=== PATIENT | female | born 1990 ===

== ENCOUNTER 2016-09-20 17:29 | Emergency (ER) | payer SELFPAY ==
[2016-09-20 18:41] VITALS: BMI 37.3
--- NOTE | 2016-09-20 21:48 | US ---
EXAM: US Uterus, Limited. CLINICAL HISTORY: 25 years old, female; Pain; Other: Abd pain; Gestational age or lmp: 40 wks; ; Additional info: Jacinda; Variable decel; 40 wks; TECHNIQUE: Real-time ultrasound of the maternal uterus (limited) with image documentation. EXAM DATE/TIME: 09/20/2016 6:42 PM COMPARISON: There are no prior studies for comparison. FINDINGS: Gestation: There is a single intrauterine gestation in cephalic presentation. There is a heart rate of 144 beats per minute. Placenta is anterior and fundal. Amniotic fluid index measures 18.43 cm. Cervix: Cervix measures approximately 5 cm in length. IMPRESSION: Single cephalic fetus; normal amniotic fluid index
--- NOTE | 2016-09-20 23:36 | OBHP ---
Datetime: 09/20/2016 18:48 IP Adm Impression: Term, intrauterine ; No Active Labor; Intact Membranes IP Chief Complaint Other: Vaginal spotting IP Admit Plan: Observation/Evaluation Admit Comment, IP Provider: This is 25 y/o at 40 weeks GA, LIAM: 09/20/16 based on LMP( 6), with no significant past medical history who presents complaining of three episodes of vaginal sp otting since today morning around 8 am. Denies leakage of fluids. Patient reports she has llower back pain since few days ago, intensity 3/10. Reports good movements. Denies urinary symptoms or ot her complains. PMHx: No reported OBHx: , no complications during current . Allergies: NKDA Shx: no reported SocialHx:Denies smoking, etoh, no recreational drugs Medications: vitamins O: VE: 1-1.5 cm/70 %/-2 labs: GBS: negative, Chl/GC: neg, neg, RPR: neg, HIV: neg, rubella: immune A: 25 y/o with IUP at 40 weeks, in no active labor. Plan: -F/U obstetric US to emphasize -Consider DC home if KHADIJAH is normal Case discussed with Dr. Corey Chávez PGY1 OBH ADDENDUM: Pt seen _ examined by me. Agree with assessment and pln. Note pt denies coitus x3+mo's p: d/c home labor precautions kick counts f/u with ob appt as sched'd Pelvic Type - PN: Adequate Extremities - PN: Normal Abdomen - PN: Abnormal Lungs - PN: Normal Heart - PN: Normal Thyroid - PN: Normal Neurologic - PN: Normal HEENT - PN: Normal General - PN: Normal Presentation-Admit: Vertex FHR - Baseline A Provider: 140 Comments, ACOG Physical Exam: US results: KHADIJAH=15 IP Hx Assessment: The History has been Reviewed and is Current IP Chief Complaint: Maternal discomfort NICHD Variability Prov Fetus A: Moderate 6-25bpm NICHD Accel Fetus A IP Provider: 15X15 FHR Category Provider Fetus A: Category I NICHD Decel Fetus A IP Provider: None Genitourinary Exam: Normal
== END 2016-09-20 21:20 | disposition home or self-care (01) ==
LOC: H.EROB2 17:29
DX: O47.1 False labor at or after 37 completed weeks of gestation (principal); O48.0 Post-term pregnancy; Z3A.40 40 weeks gestation of pregnancy

== ENCOUNTER 2016-09-21 15:15 | Inpatient (IN) | payer MEDICAID, SELFPAY ==
[2016-09-21] MEDS ORDERED: Lactated Ringer's 1,000 ML IV ONE (18:15)
[2016-09-21 18:16] VITALS: BMI 33.6
--- NOTE | 2016-09-21 18:16 | OBHP ---
Datetime: 09/21/2016 15:47 IP Adm Impression: Term, intrauterine IP Admit Plan: Observation/Evaluation Admit Comment, IP Provider: 25 yo at 40+1 wks w/ c/o of a lot of pain in suprapubic region and lower back pain, sx started at 10pm last night. Pt rates the pain /. Pt reports that she feel s like she is having ctxns, denies LOF reorts a little blood spotting. Pt was examined yesterday in [facility]. Pt speaks Hungarian. Madhavi Allison RN translated. 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, denies STDs, abn paps PE: AFVSS Gen'l: pt appears in NAD, lying in bed Abd: soft, NT, gravid Ext: NT EFM: as above A/P: 25 yo at 40+1 wks w/ painful ctxns Extremities - PN: Normal Abdomen - PN: Normal Neurologic - PN: Normal General - PN: Normal FHR - Baseline A Provider: 140 Membranes, Provider: Intact EGA AdmitDate IP: 40.1 Vital Signs Provider: Reviewed IP Chief Complaint: Uterine contractions NICHD Variability Prov Fetus A: Moderate 6-25bpm NICHD Accel Fetus A IP Provider: 15X15 FHR Category Provider Fetus A: Category I NICHD Decel Fetus A IP Provider: None Dilatation, Provider: 2 Effacement, Provider: 80 Station, Provider: -2 Genitourinary Exam: Normal
--- NOTE | 2016-09-21 18:23 | OBPN ---
Datetime: 09/21/2016 18:17 IP Progress Plan Other: Morphine rest IP Progress Impression Other: Painful contractions IP Procedures: Sterile Vag Exam Membranes, Provider: Intact Contraction Comments Provider: Irregular FHR - Baseline A Provider: 130 IP Progress Note Comment: 25 yo at 40+1 wks w/ painful ctxns VE unchanged, may be early or prodromal labor Will give IVF, 4mg IV morphine and 10 mg IM morphine for now NICHD Accel Fetus A IP Provider: 15X15 FHR Category Provider Fetus A: Category I NICHD Variability Prov Fetus A: Moderate 6-25bpm Dilatation, Provider: 2 Effacement, Provider: 80 Station, Provider: -2 NICHD Decel Fetus A IP Provider: None Datetime: 09/21/2016 15:47 Vital Signs Provider: Reviewed Datetime: 09/20/2016 18:48 Presentation-Admit: Vertex
[2016-09-22 04:39] LABS: BASO # 0.1 K/uL (0.0-0.2); BASO % 0.8 % (0.0-2.0); EOS % 0.2 % (0.0-4.0); HEMATOCRIT 38.4 % (34.0-47.0); LYMPH # 1.8 K/uL (1.0-4.3); LYMPH % 19.4 % (20.0-40.0); MEAN CELL VOLUME 93.3 fl (81.0-99.0); MEAN CORPUSCULAR HEMOGLOBIN 30.5 pg (27.0-31.0); MEAN CORPUSCULAR HGB CONC 32.6 g/dL (33.0-37.0); MONO # 0.6 K/uL (0.0-0.8); MONO % 6.3 % (0.0-10.0); NEUT % 73.3 % (50.0-75.0); NRBC % 0.3 % (0.0-0.0); RED CELL DISTRIBUTION WIDTH 16.4 % (11.5-14.5); WHITE BLOOD COUNT 9.5 K/uL (4.8-10.8)
--- NOTE | 2016-09-22 04:48 | OBADHP ---
Datetime: 09/22/2016 04:42 Admit Comment, IP Provider: 25 yo at 40+2 wks in labor GBS negative, FHT reassuring H_P dictated, " [id number]" (ES) Abdomen - PN: Normal Neurologic - PN: Normal General - PN: Normal FHR - Baseline A Provider: 140 Membranes, Provider: Intact Contraction Comments Provider: Q4-5 Vital Signs Provider: Reviewed; Within Normal Limits IP Chief Complaint: Uterine contractions NICHD Variability Prov Fetus A: Moderate 6-25bpm NICHD Accel Fetus A IP Provider: 15X15 FHR Category Provider Fetus A: Category I NICHD Decel Fetus A IP Provider: None Dilatation, Provider: 4-5 Effacement, Provider: 100 Station, Provider: -2 Genitourinary Exam: Normal EGA AdmitDate IP: 40.2 IP Adm Impression: Term, intrauterine IP Admit Plan: Initiate labor protocol Datetime: 09/21/2016 15:47 Extremities - PN: Normal Datetime: 09/20/2016 18:48 IP Chief Complaint Other: Vaginal spotting Pelvic Type - PN: Adequate Lungs - PN: Normal Heart - PN: Normal Thyroid - PN: Normal HEENT - PN: Normal Presentation-Admit: Vertex Comments, ACOG Physical Exam: US results: KHADIJAH=15 IP Hx Assessment: The History has been Reviewed and is Current
[2016-09-22] MEDS ORDERED: Fentanyl/Bupivacaine HCl 250 ML EPI ONE (06:17)
[2016-09-22] MEDS: Lactated Ringer's 1,000 ML IV SCH ×2 (07:25→12:40)
[2016-09-22] MEDS ORDERED: Oxytocin 30 units/LR 500ML 500 ML IV SCH (09:15)
--- NOTE | 2016-09-22 09:25 | OBPN ---
Datetime: 09/22/2016 09:00 IP Progress Impression: Normal progression of labor; Reassuring heart rate IP Informed Consent Obtain: Vaginal Delivery; Risks, Benefits and Alternatives Discussed IP Procedures: Artificial ROM IP Progress Plan: Continue present management; Augmentation Pool Provider: Negative Membranes, Provider: Ruptured Amniotic Fluid Color, Provider: Clear FHR - Baseline A Provider: 135 Presentation-Admit: Vertex IP Progress Note Comment: IUP at term admitted for pain and last checked at 4am (4-5cm)...given epidural. A: Latent phase of labor P: AROM clear / Pitocin augmentation...condition and plan discussed with pt and she understands (hien lópez) NICHD Accel Fetus A IP Provider: 15X15 FHR Category Provider Fetus A: Category I NICHD Variability Prov Fetus A: Moderate 6-25bpm Dilatation, Provider: 4 Effacement, Provider: 75 Station, Provider: -1 Datetime: 09/22/2016 04:42 Contraction Comments Provider: Q4-5 Vital Signs Provider: Reviewed; Within Normal Limits NICHD Decel Fetus A IP Provider: None
--- NOTE | 2016-09-22 11:10 | HP ---
HISTORY OF PRESENT ILLNESS: This is a 25-year-old G2, P0-0-1-0 at 40 weeks and 2 days with an EDC of 09/20/2016 by last menstrual period, consistent with a 13- week ultrasound, who presented to OB ED on 09/21/2016 complaining of a lot of pain in the suprapubic region and lower back. She reports that it started at 10 p.m. last night. She reported the pain as 6/10. The patient reported that the pain feels like contractions. She also reported a little blood today and reports positive movement. Denies leaking of fluid. The patient did have a vaginal exam the day prior and was 1-2 cm, 70% effaced at OB ED on 2016. The patient was examined and was found to be about 2 cm, 80% effaced and -2 station at 3:43 p.m. on 09/21/2016. She was reexamined and found to be the same at 6 p.m. and so she was offered to go home and come back when she was in more active labor or to have morphine rest. The patient decided to have morphine rest. She received 4 mg of IV morphine and 10 mg of IM morphine. The patient was later checked at 4 a.m. on 09/22/2016 and was found to be 4-5 cm, 100 % effaced and -2 station, desires epidural. The patient received [facility] care at [facility]. On 08/22/2016, GBS was negative. The patient is Georgian speaking only, and her history was translated by Madhavi Allison RN. PAST MEDICAL HISTORY: Healthy. PAST SURGICAL HISTORY: None. MEDICATIONS: vitamins. ALLERGIES: No known drug allergies. FAMILY HISTORY: Noncontributory. SOCIAL HISTORY: The patient denies tobacco, alcohol, and illicit drug use. GYNECOLOGICAL HISTORY: Regular periods. She denies any history of any STDs or any abnormal Paps. OBSTETRICAL HISTORY: In 2010, she had a miscarriage. LABORATORIES: On 03/21/2016, 1-hour Glucola was 119. On 07/04/2016, 1- hour Glucola was 96. First trimester screen was negative on 03/21/2016. On 07/2015, AFP was negative. On 03/21/2016, blood type is O positive. Antibody screen negative. On 04/04/2016, gonorrhea and chlamydia were negative. On 03/21, cystic fibrosis negative. On 03/21/2016, hepatitis B surface antigen was negative. Hemoglobin electrophoresis was normal pattern. HIV was negative. On 04/04/2016, Pap smear was negative. On 03/21/2016, RPR was negative and her rubella was immune. On 08/22/2016, group B strep was negative. On 03/21/2016, her urine tox screen was negative. PHYSICAL EXAMINATION: VITAL SIGNS: Afebrile. Vital signs stable. GENERAL: The patient appears slightly uncomfortable lying in bed. ABDOMEN: Soft, nontender, gravid. EXTREMITIES: Nontender. VAGINAL: 4-5 cm, 100% effaced and -2 station at 4 a.m. External Monitoring: Baseline is in the 140's with moderate variability, positive accelerations. Tocodynamometer: Contractions every 4-5 minutes. ASSESSMENT AND PLAN: This is a 25-year-old G2, P0-0-1-0 at 40 weeks and 2 days , who is status post morphine rest and presents now in labor. The patient desires an epidural. Group B Streptococcus is negative. heart tracing is reassuring. Sarah Louie MD cc: [id number] TT: 09/22/2016 11:10:00 en MTDD
[2016-09-22 11:12] VITALS: BP 106/60; PULSE 86; RESP 17; TEMP 98.8; O2SAT 98
--- NOTE | 2016-09-22 13:21 | OBPN ---
Datetime: 09/22/2016 13:15 IP Progress Impression: Normal progression of labor; Reassuring heart rate IP Informed Consent Obtain: Vaginal Delivery; Risks, Benefits and Alternatives Discussed IP Procedures: Intrauterine Pressure Catheter; Amnio Infusion IP Progress Plan: Continue present management; Augmentation Membranes, Provider: Ruptured Contraction Comments Provider: 2-3m FHR - Baseline A Provider: 140 IP Progress Note Comment: NOtified that she was 7cm and variable decels noted...IUPC and amnionfusio n 500cc NS over 1h then 125cc/h...monitor progress/ on Pitocin IV NICHD Accel Fetus A IP Provider: 15X15 FHR Category Provider Fetus A: Category II NICHD Variability Prov Fetus A: Moderate 6-25bpm Dilatation, Provider: 7 Effacement, Provider: 100 Station, Provider: 0 NICHD Decel Fetus A IP Provider: Variable
[2016-09-22] MEDS ORDERED: Lidocaine 2% PF (10 ml) Amp ONE (15:20)
[2016-09-22] MEDS ORDERED: Bupivacaine HCl 0.5% PF (30 ml) Inj ONE (15:22)
[2016-09-22] MEDS ORDERED: Midazolam 2 MG/2 ML VIAL ONE (15:23)
--- NOTE | 2016-09-22 15:23 | OBPN ---
Datetime: 09/22/2016 15:15 IP Progress Impression: Arrest of dilatation/descent IP Informed Consent Obtain: Section Delivery; Risks, Benefits and Alternatives Discussed IP Progress Plan: Deliver- Section Membranes, Provider: Ruptured Contraction Comments Provider: 2-3m FHR - Baseline A Provider: 150 Presentation-Admit: Vertex IP Progress Note Comment: WIth IUPC in place, deceleration continue. A: deceleratoins remote from [facility] P: Pitocin 8miu/h IUPC/amnioinfusion running condition explained to pt. She understands. Caramel Candy Maker present. For C/S and informed consent ob tained. NICHD Accel Fetus A IP Provider: 10X10 FHR Category Provider Fetus A: Category I NICHD Variability Prov Fetus A: Moderate 6-25bpm Dilatation, Provider: 7 Effacement, Provider: 100 Station, Provider: 0 NICHD Decel Fetus A IP Provider: Variable
[2016-09-22] MEDS ORDERED: ePHEDrine 50 mg/ml Inj ONE (15:27)
[2016-09-22] MEDS ORDERED: Phenylephrine 10 mg/ml Inj ONE (15:27)
[2016-09-22] MEDS ORDERED: Morphine 1 mg/ml preservative-free Inj(Duramorph) ONE (15:42)
[2016-09-22] MEDS ORDERED: Oxytocin 30 units/LR 500ML 500 ML IV ONE (15:46)
[2016-09-22] MEDS ORDERED: Oxycodone/Acetaminophen 5/325 mg Tab PO PRN ×2 (16:48→22:32)
[2016-09-22] MEDS: Simethicone 80 mg Chewtab PO SCH (21:54)
[2016-09-22] MEDS ORDERED: Simethicone 80 mg Chewtab PO SCH (22:00)
[2016-09-22] MEDS ORDERED: DiphenhydrAMINE 50 mg/ml Inj IVP PRN (22:32)
[2016-09-23] MEDS: Simethicone 80 mg Chewtab PO SCH ×4 (05:18→22:12)
[2016-09-23 06:21] LABS: HEMATOCRIT 25.5 % (34.0-47.0); MEAN CELL VOLUME 91.5 fl (81.0-99.0); MEAN CORPUSCULAR HGB CONC 33.9 g/dL (33.0-37.0); RED CELL DISTRIBUTION WIDTH 14.9 % (11.5-14.5); WHITE BLOOD COUNT 10.7 K/uL (4.8-10.8)
--- NOTE | 2016-09-23 08:55 | OBPPN ---
Datetime: 09/23/2016 05:47 PP Pain Prov: Within normal limits PP Nausea Prov: Denies PP Flatus Prov: Yes PP BM Prov: No PP Breasts Prov: Normal PP Heart Prov: Normal PP Lungs Prov: Normal PP Abdomen/Uterus Prov: Normal PP Lochia Prov: Normal PP Vulva/Perineum Prov: Not Done PP CVA Tenderness Prov: Normal PP Extremities Prov: Normal PP C/S Incision Prov: Normal PP Progress Prov: Normal PP Comments Phys Exam Prov: not acute distress lying in bed. Lungs CTA B/L. RRR, S1S2. Abd soft, dif fuse tendernes, no rebound or guarding. +BS. Uterus firm umb level. Dressing removed. Wound clean and dry. No calf tenderness. Alert, oriented. PP Impression Prov: Normal progression PP Plan Prov: Continue present management PP Progress Note Prov: POD1 Patient seen at bedside. Denies nausea, vomiting, CP, SOB, palpitations or calf pain. Abd pain is controlled with meds. +Flatus, no BM. Hassan in place to be removed at 06:00. Lochia more than menses. Dressing removed. O:see above A: S/P C-Sect, POD1 normal progression P: Motrin and percocet PRN for pain F/U pCBC Reg diet Anticipated DC 09/25/16 Vince Ceballos PGY1 OBHospitalist on-call..I saw and examined this patient....agree with note...MARY H/H 02/23...will monitor/observe for symptoms of anemia...currently stable IP PP Procedures: None Vital Signs Provider PP: Reviewed; Within Normal Limits
[2016-09-23] MEDS: Oxycodone/Acetaminophen 5/325 mg Tab PO PRN (20:31)
[2016-09-24] MEDS: Simethicone 80 mg Chewtab PO SCH ×4 (04:01→22:36)
--- NOTE | 2016-09-24 12:55 | OBPPN ---
Datetime: 09/24/2016 07:42 PP Pain Prov: Within normal limits PP Nausea Prov: Denies PP Flatus Prov: Yes PP BM Prov: Yes PP Heart Prov: Normal PP Abdomen/Uterus Prov: Normal PP Lochia Prov: Normal PP Extremities Prov: Normal PP C/S Incision Prov: Normal PP Comments Phys Exam Prov: incision : clean dry. steristrips in place PP Impression Prov: Normal progression PP Plan Prov: Discharge PP Progress Note Prov: POD2: s/p S:Patient tolerating regular diet, no n/v. Reports +flatus, +BM. Pain is well controlled. Has been OOB and ambulating w/o difficulty. Bottlefeeding only. O: as above A/P: 25 s/p with normal post progression. -pain control with motrin/percocet -encouraged ambulation -keep incision clean and dry. Pretty Manzo PGY1 IP PP Procedures: None Vital Signs Provider PP: Reviewed; Within Normal Limits
[2016-09-25] MEDS: Oxycodone/Acetaminophen 5/325 mg Tab PO PRN (09:00)
[2016-09-25] MEDS: Simethicone 80 mg Chewtab PO SCH (09:01)
--- NOTE | 2016-09-25 10:05 | OBPPN ---
Datetime: 09/25/2016 07:30 PP Pain Prov: Within normal limits PP Nausea Prov: Denies PP Flatus Prov: Yes PP BM Prov: Yes PP Heart Prov: Normal PP Lungs Prov: Normal PP Abdomen/Uterus Prov: Abnormal PP Lochia Prov: Normal PP Extremities Prov: Normal PP C/S Incision Prov: Normal PP Progress Prov: Normal PP Impression Prov: Normal progression PP Plan Prov: Discharge PP Progress Note Prov: S:Patient was seen and examined at bedside this morning. Patient is feeling w ell. Tolerating regular diet, no n/v. Reports +flatus, +BM. Pain is well controlled with PO medicatio ns. Has been OOB and ambulating w/o difficulty. Bottlefeedind only, but patient wants to breast feed. O: as above. Abdomen: Soft, non distended, mild tenderness to palpation at uterus level, but no rebound tendern ess. Uterus firm at umbilicus. No rigidity or guarding. A/P: 25 s/p POD # 3, with normal post progression. -Discharge home today -Continue pain control with motrin/percocet -Maintain good hydration and ambulation -F/U with OBGYN at [facility] in 1 week for wound evaluation. -F/U in 2-3 days with PMD/Subscription Agent. -ER precautions provided. Elly Chávez PGY1 OBH ADDENDUM: pt seen _ examined by me. agree with above assessment and plan. p: wound hygiene d/w pt. rx Fe and SenokotS(hgb 8.6) IP PP Procedures: None Vital Signs Provider PP: Reviewed
--- NOTE | 2016-09-25 10:07 | OBDCSUM ---
Datetime: 09/25/2016 07:39 Discharged to, Provider: Home Follow up at, Provider: OBGYN Disch Instr Activity: Normal activity Disch Instr Diet: Regular Discharge Instructions, Provider: Routine instructions given Discharge Diagnosis, Provider: Term Delivered Discharge Time: 09/25/2016 11:30 Follow up in weeks, Provider: 1 week at [facility] Contraception discussed, Prov: Yes Disch Activity Restrictions: No exercising; No lifting; No driving; No sexual activity; Nothing in v agina - [place], tampons, douche Discharge Comment, Provider: 25 s/p POD # 3, with normal post progression. -Discharge home today -Continue pain control with motrin/percocet -Maintain good hydration and ambulation -F/U with OBGYN at [facility] in 1 week for wound evaluation. -F/U in 2-3 days with PMD/Search Engine Optimization Strategist. -ER precautions provided. Elly Chávez PGY1 OBH ADDENDUM: pt seen _ examined by me. agree with above assessment and plan. p: wound hygiene d/w pt. rx Fe and SenokotS(hgb 8.6) Contraception after Delivery: Undecided
== END 2016-09-25 15:00 | disposition home or self-care (01) | DRG 766 ==
LOC: H.EROB2 15:15 → H.L&D 09-22 04:26 → H.OB/GYN 09-22 20:51
PROVIDERS: ADMIT Obstetrics & Gynecology; ATTEND Obstetrics & Gynecology
PROC: 10D00Z1 Extraction of Products of Conception, Low, Open Approach (ICD-10-PCS; principal; 2016-09-22)
PROC: 10907ZC Drainage of Amniotic Fluid, Therapeutic from Products of Conception, Via Natural or Artificial Opening (ICD-10-PCS; 2016-09-22)
PROC: 3E0E7GC Introduction of Other Therapeutic Substance into Products of Conception, Via Natural or Artificial Opening (ICD-10-PCS; 2016-09-22)
PROC: 10H07YZ Insertion of Other Device into Products of Conception, Via Natural or Artificial Opening (ICD-10-PCS; 2016-09-22)
PROC: 4A1J7BZ Monitoring of Products of Conception, Nervous Pressure, Via Natural or Artificial Opening (ICD-10-PCS; 2016-09-22)
DX: O62.0 Primary inadequate contractions (principal); O48.0 Post-term pregnancy; Z37.0 Single live birth; Z3A.40 40 weeks gestation of pregnancy